=== PATIENT | male | born 1955 ===

== ENCOUNTER 2023-04-26 07:45 | Inpatient (IN) | payer OTHER ==
[~2023-04-26] VITALS: Ht 172.7 cm; Wt 81.6 kg
[2023-05-02] MEDS ORDERED: BACTRIM DS TAB1 EACH PO (08:32)
[2023-05-02] MEDS ORDERED: OXYC1TAB9 PO (08:32)
[2023-05-02] MEDS ORDERED: XARELTO10 MG PO (08:32)
[2023-05-02] MEDS ORDERED: INTEGRA PLUS C1 EACH PO (08:32)
== END 2023-05-02 15:42 | disposition home or self-care (01) | DRG 470 ==
LOC: O/R 04-30 05:58 → SURH 04-30 05:58
PROVIDERS: ADMIT Orthopaedic Surgery Sports Medicine; ATTEND Orthopaedic Surgery Sports Medicine
PROC: 0SRD0J9 Replacement of Left Knee Joint with Synthetic Substitute, Cemented, Open Approach (ICD-10-PCS; principal; 2023-04-30 10:30)
DX: M17.12 Unilateral primary osteoarthritis, left knee (principal); Z96.652 Presence of left artificial knee joint

== ENCOUNTER 2023-12-25 08:15 | Inpatient (IN) | payer OTHER ==
[~2023-12-25] VITALS: Ht 172.7 cm; Wt 81.6 kg
[~2023-12-25 08:15] MED LIST: BACTRIM DS TAB1 EACH PO; INTEGRA PLUS C1 EACH PO; OXYC1TAB9 PO; XARELTO10 MG PO
[2023-12-25] MEDS ORDERED: MELOXICAM15 MG PO (09:56)
[2023-12-25] MEDS ORDERED: PROTONIX20 MG PO (09:56)
[2023-12-31] MEDS ORDERED: CEFAZOLIN SODIUM 1,000 MG VIAL ONE ×2 (13:24→20:37)
[2023-12-31] MEDS ORDERED: TRANEXAMIC ACID 100MG/1ML (1000MG) AMPUL IV ONE ×3 (13:26→15:45)
[2023-12-31] MEDS ORDERED: OMEPRAZOLE40 MG (13:48)
[2023-12-31] MEDS ORDERED: POVIDONE-IODINE 3 EA MED..SWAB TOP ONE ×2 (14:26→16:30)
[2023-12-31] MEDS ORDERED: KETOROLAC TROMETHAMINE 60 MG VIAL IM ONE ×2 (14:26→15:45)
[2023-12-31] MEDS ORDERED: METHYLPREDNISOLONE ACETATE 80 MG/ML VIAL ONE (14:27)
[2023-12-31] MEDS ORDERED: VANCOMYCIN HCL 1,000 MG VIAL ONE (14:27)
[2023-12-31] MEDS ORDERED: BUPIVACAINE HCL/PF 0.5% 30ML ML ONE (14:27)
[2023-12-31] MEDS ORDERED: LIDOCAINE HCL 1%/Epi 20ML VIAL IJ ONE ×2 (14:27→15:45)
[2023-12-31] MEDS ORDERED: POLYMYXIN B SULFATE 500,000 U VIAL ONE (14:32)
[2023-12-31] MEDS ORDERED: CEFAZOLIN SODIUM 1,000 MG VIAL IV ONE (15:45)
[2023-12-31] MEDS ORDERED: METHYLPREDNISOLONE ACETATE 80 MG/ML VIAL IJ ONE (15:45)
[2023-12-31] MEDS ORDERED: POLYMYXIN B SULFATE 500,000 U VIAL IR ONE (15:45)
[2023-12-31] MEDS ORDERED: ISOPROPYL ALCOHOL 30 ML OUNCE TOP ONE (15:45)
[2023-12-31] MEDS ORDERED: BUPIVACAINE HCL/PF 0.5% 30ML ML IJ ONE (15:45)
[2023-12-31] MEDS ORDERED: VANCOMYCIN HCL 1,000 MG VIAL IR ONE (15:45)
[2023-12-31] MEDS ORDERED: MORPHINE SULFATE 4 MG/ML CARTRIDGE IV ONE (16:30)
[2023-12-31] MEDS ORDERED: ONDANSETRON HCL 2 MG/ML VIAL IV PRN (17:45)
[2023-12-31] MEDS ORDERED: MORPHINE SULFATE 4 MG/ML VIAL IV PRN (17:45)
[2023-12-31] MEDS ORDERED: MORPHINE SULFATE 4 MG/ML VIAL IV ONE (17:45)
[2023-12-31] MEDS ORDERED: SODIUM CHLORIDE 0.45 % 1,000 ML IV SCH (17:45)
[2023-12-31] MEDS ORDERED: GENTAMICIN SULFATE 40 MG/ML VIAL IV SCH (17:47)
[2023-12-31] MEDS ORDERED: CEFAZOLIN SODIUM 1,000 MG VIAL IV SCH (18:00)
[2023-12-31 19:41] LABS: HEMATOCRIT 41.2 % (39.0-48.0); HEMOGLOBIN 13.9 g/dL (13-16.00); RED BLOOD COUNT 4.5 M/uL (4.00-6.00)
[2023-12-31] MEDS ORDERED: GENTAMICIN SULFATE 40 MG/ML VIAL ONE (20:37)
[2024-01-01 07:07] LABS: HEMATOCRIT 37.6 % (39.0-48.0); MEAN CORPUSCULAR HEMOGLOBIN 31.4 pg (27.00-32.0); MEAN CORPUSCULAR HGB CONC 34.5 g/dl (32.0-36.0); PLATELET COUNT 205 K/uL (150-450); RED BLOOD COUNT 4.13 M/uL (4.00-6.00); RED CELL DISTRIBUTION WIDTH 13.1 % (11.5-14.5)
[2024-01-01] MEDS ORDERED: OxyCODONE HCL/APAP UD (PERCOCET) PO PRN (08:15)
[2024-01-01] MEDS ORDERED: IRON FUM,PS/FOLIC/BCOMP,C NO.9 1 CAP CAPSULE PO SCH (09:00)
[2024-01-01] MEDS ORDERED: OxyCODONE HCL ER 10MG TAB (OxyCONTIN) PO SCH (09:00)
[2024-01-01] MEDS ORDERED: SENNA/DOCUSATE SODIUM 1 TAB TABLET PO SCH (09:00)
[2024-01-01] MEDS ORDERED: PANTOPRAZOLE SODIUM 40 MG TABLET.DR PO SCH (09:00)
[2024-01-01] MEDS ORDERED: BACITRACIN 28.35 GM OINT.TUBE TOP SCH (09:00)
[2024-01-01] MEDS ORDERED: RIVAROXABAN 10 MG TAB PO SCH (09:00)
[2024-01-02 06:14] LABS: HEMATOCRIT 31.4 % (39.0-48.0); HEMOGLOBIN 11.1 g/dL (13-16.00); MEAN CELL VOLUME 89.1 fL (80.0-100.00); MEAN CORPUSCULAR HEMOGLOBIN 31.3 pg (27.00-32.0); MEAN CORPUSCULAR HGB CONC 35.2 g/dl (32.0-36.0); PLATELET COUNT 187 K/uL (150-450); RED BLOOD COUNT 3.53 M/uL (4.00-6.00); RED CELL DISTRIBUTION WIDTH 13.1 % (11.5-14.5)
[2024-01-02] MEDS ORDERED: BACTRIM DS TAB1 EACH PO (06:27)
[2024-01-02] MEDS ORDERED: XARELTO10 MG PO (06:27)
[2024-01-02] MEDS ORDERED: INTEGRA PLUS C1 EACH PO (06:27)
[2024-01-02] MEDS ORDERED: OXYC1TAB9 PO (06:27)
== END 2024-01-02 11:32 | disposition home or self-care (01) | DRG 470 ==
LOC: O/R 12-31 05:19 → SURH 12-31 07:00
PROVIDERS: ADMIT Orthopaedic Surgery Sports Medicine; ATTEND Orthopaedic Surgery Sports Medicine
PROC: 0SRC0J9 Replacement of Right Knee Joint with Synthetic Substitute, Cemented, Open Approach (ICD-10-PCS; principal; 2023-12-31 07:00)
DX: M17.11 Unilateral primary osteoarthritis, right knee (principal)